=== PATIENT | female | born 2000 | race American Indian/Alaskan Native ===

== ENCOUNTER 2021-10-24 20:01 | Outpatient (CLI) | payer MEDICAID ==
[2021-10-24 20:54] LABS: Mucus,Urine 3+ /HPF
[2021-10-24 20:57] LABS: Bilirubin,Urine Negative (Negative); Color,Urine Straw (Yellow)
[2021-10-24 20:58] LABS: Blood,Urine Negative (Negative); PH,Urine 6.5 (5.0-7.0); Urobilinogen,Urine < 2.0 mg/dL (<2.0)
[2021-10-24 21:06] VITALS: BP 110/70
== END 2021-10-24 21:30 | disposition home or self-care (01) ==
LOC: TRG 20:01 → APU 20:33 → TRG 21:30
PROVIDERS: ATTEND Obstetrics & Gynecology
DX: O26.893 Other specified pregnancy related conditions, third trimester (principal); R10.9 Unspecified abdominal pain; Z3A.37 37 weeks gestation of pregnancy
CPT/HCPCS: 81001; 87086

== ENCOUNTER 2021-11-04 17:38 | Outpatient (CLI) | payer MEDICAID ==
[2021-11-04 19:13] VITALS: BP 108/58
== END 2021-11-04 21:33 | disposition home or self-care (01) ==
LOC: TRG 17:38 → APU 17:41 → TRG 21:33
PROVIDERS: ATTEND Student in an Organized Health Care Education/Training Program
DX: O42.92 Full-term premature rupture of membranes, unspecified as to length of time between rupture and onset of labor (principal); Z3A.39 39 weeks gestation of pregnancy
CPT/HCPCS: 36415; 84112

== ENCOUNTER 2021-11-11 15:48 | Outpatient (CLI) | payer MEDICAID ==
[2021-11-11 17:04] LABS: Hematocrit 28.8 % (30.3-42.9); Hemoglobin 9.5 gm/dl (10.1-14.3); Mean Corpuscular HGB Conc 33 % (30-34); Mean Corpuscular Volume 87 fl (79-97); Platelet Count 227 K/mm3 (140-440); Red Blood Count 3.31 M/mm3 (3.65-5.03); Red Cell Distribution Width 14.1 % (13.2-15.2)
[2021-11-11 19:31] LABS: Alanine Aminotransferase 7 units/L (7-56); Uric Acid 4.7 mg/dL (3.5-7.6)
[2021-11-11 21:15] LABS: Mucus,Urine FEW /HPF
[2021-11-11 21:34] LABS: Bilirubin,Urine Negative (Negative); Color,Urine Yellow (Yellow)
[2021-11-11 21:35] LABS: Blood,Urine Negative (Negative); Protein,Urine <15 mg/dL mg/dL (Negative); Urobilinogen,Urine < 2.0 mg/dL (<2.0)
[2021-11-12 01:56] VITALS: BP 109/69
== END 2021-11-11 20:03 | disposition home or self-care (01) ==
LOC: TRG 15:48 → US 15:48 → APU 15:50 → US 20:03
PROVIDERS: ATTEND Obstetrics & Gynecology
DX: O26.893 Other specified pregnancy related conditions, third trimester (principal); M79.89 Other specified soft tissue disorders; R51.9 Headache, unspecified; Z3A.40 40 weeks gestation of pregnancy
CPT/HCPCS: 36415; 81001; 82565; 83615; 84450; 84460; 84550; 85027